=== PATIENT | male | born 1980 | race Caucasian/White ===

== ENCOUNTER 2017-12-22 14:31 | Emergency (ER) | payer OTHER ==
[~2017-12-22] VITALS: Ht 180.3 cm; Wt 81.8 kg
[2017-12-22] MEDS ORDERED: NAPROXEN500 MG PO (18:26)
[2017-12-22 18:53] VITALS: BP 126/64
== END 2017-12-22 18:53 | disposition home or self-care (01) ==
LOC: EME 14:31
DX: M25.571 Pain in right ankle and joints of right foot (principal); R22.41 Localized swelling, mass and lump, right lower limb
CPT/HCPCS: 73610; 93971; 99281; 99284